=== PATIENT | female | born 1990 | race American Indian/Alaskan Native ===

== ENCOUNTER 2017-10-06 05:05 | Emergency (ER) | payer OTHER ==
[2017-10-06 05:40] VITALS: BMI 39.8
[2017-10-06] MEDS ORDERED: Lactated Ringer's 1,000 ML IV SCH (06:15)
[2017-10-06 06:45] VITALS: TEMP 97.9
[2017-10-06 06:58] LABS: BASO # 0.1 K/uL (0.0-0.2); BASO % 0.3 % (0.0-2.0); EOS # 0.1 K/uL (0.0-0.7); EOS % 0.5 % (0.0-4.0); HEMATOCRIT 33.6 % (34.0-47.0); LYMPH # 1.9 K/uL (1.0-4.3); LYMPH % 9.1 % (20.0-40.0); MEAN CELL VOLUME 76.6 fl (81.0-99.0); MEAN CORPUSCULAR HEMOGLOBIN 24.4 pg (27.0-31.0); MEAN CORPUSCULAR HGB CONC 31.9 g/dL (33.0-37.0); MEAN PLATELET VOLUME 8.9 fl (7.2-11.7); MONO # 0.9 K/uL (0.0-0.8); NEUT # 18.4 K/uL (1.8-7.0); NEUT % 86.1 % (50.0-75.0); PLATELET COUNT 262 K/uL (130-400); WHITE BLOOD COUNT 21.4 K/uL (4.8-10.8)
--- NOTE | 2017-10-06 07:08 | OBHP ---
Datetime: 10/06/2017 06:39 IP Chief Complaint Other: abdominal pain IP Admit Plan: Observation/Evaluation Vital Signs Provider: Reviewed; Within Normal Limits IP Chief Complaint: Other Datetime: 10/06/2017 06:14 IP Adm Impression: , intrauterine ; No Active Labor; Intact Membranes Admit Comment, IP Provider: CC: "abdominal pain" HPI: 27 YO @ 33.6wks IUP presents to [facility] for abdominal pain. Per pt, the pain started around 12AM this morning and it has progressively worsened. She describes it as a sharp pain that radiates to her back, and rates it as a 8/10 currently. Pt tried a Zantac earlier this AM, but it did not help resolve the pain. Endorses nausea and 2x episode of clear emesis. Good FM, no LOF and VB and no ctx. OBHx: x 2, 1 EAB, and 1x SAB GynH: denies STIs and normal pap PMH: history of H. pylori infection, s/p treatment Surg: x 2 SH: denies smoking ETOH and illict drug use FH: HTN, DM Meds: PNV and probiotics Allergies: NKDA PE VS: stable GEN: NAD Cardio: S1S2 no M/G/R Resp: vesicular breathing b/l Abdomen: tenderness to palpation of the epigastric area, gravid, BS+ BAck: CVA tenderness + b/l Neuro: AAO x 3 Ext: NT, no edema noted FM: 140, moderate variability-catagory I Assessment/plan: 27 YO @ 33.6wks IUP is being evaluated for epigastric pain, likely gastritis. -continue to monitor -IV fluids -zofran -pepsid -cbc, cmp, amylase, lipase -tylenol for pain -UA -continue to monitor and reevaluate. Pt seen and case discussed with Dr. Kevin Cat, PGY I OB Hospitalist note: Pt seen and examined with PGY1. Agree with note. chart rev'd (Dr Guzman - she works with him CP). Last WBC 20.9 on Sep 29 - no sign of infection then acc to pt. check CBC Diff / CMP / amylast / lipase and observe after meds. Dr Guzman contacted and will s ee her this AM...she was sent up from ER after EKG done for chest pain Pelvic Type - PN: Adequate Extremities - PN: Normal Abdomen - PN: Normal Back - PN: Abnormal Breast - PN: Not Done Lungs - PN: Normal Heart - PN: Normal Thyroid - PN: Not Done Neurologic - PN: Normal HEENT - PN: Normal General - PN: Normal FHR - Baseline A Provider: 140 IP Hx Assessment: The History has been Reviewed and is Current NICHD Variability Prov Fetus A: Moderate 6-25bpm NICHD Accel Fetus A IP Provider: 15X15 FHR Category Provider Fetus A: Category I Genitourinary Exam: Normal DTRs - PN: Not Done
--- NOTE | 2017-10-06 07:10 | OBHP ---
Datetime: 10/06/2017 06:39 Admit Comment, IP Provider: 27YO @ 33.6wks IUP is being evaluated for abdominal pain. Pt was seen by Dr. Brian by bedside. Pt was examined. Cervix: closed Deandra Cat, PGY I Agree with note megha
[2017-10-06 07:52] LABS: ALKALINE PHOSPHATASE 134 U/L (38-126); ALT/SGPT 24 U/L (9-52); AMYLASE 82 U/L (30-110); AST/SGOT 15 U/L (14-36); BILIRUBIN,TOTAL 0.2 mg/dl (0.2-1.3); BLOOD UREA NITROGEN 4 mg/dl (7-17); CALCIUM 8.6 mg/dL (8.4-10.2); CARBON DIOXIDE 20 mmol/L (22-30); CHLORIDE 109 mmol/L (98-107); GFR AFRICAN-AMERICAN > 60; GLUCOSE,RANDOM 107 mg/dL (65-105); LIPASE 58 U/L (23-300); POTASSIUM 3.5 MMOL/L (3.6-5.0); SODIUM 138 mmol/l (132-148); TOTAL PROTEIN 7.1 G/DL (6.3-8.2)
[2017-10-06 09:23] LABS: EOSINOPHIL 1 % (0-7); NEUTROPHIL 87 % (42-75); TOTAL CELLS COUNTED 100
--- NOTE | 2017-10-06 21:32 | CP.PCM.CON ---
History of Present Illness - History of Present Illness History of Present Illness: 27 y.o. female comes to the hospital with epigastric and RUQ abdominal pain since last night. Patient denies any fever or chills, states that felt nauseous and did vomit (no blood in the vomitus). Passing flatus and having bowel movements. Patient states that she never had similar pain before. Patient states that pain is radiating to her back. No urinary symptoms, no sick contacts at home. No other complains at present time. Review of Systems - Constitutional Constitutional: As Per HPI - EENT Eyes: Other (unremarkable) Ears: Other (unremarkable) Nose/Mouth/Throat: Other (unremarkable) - Cardiovascular Cardiovascular: Other (unremarkable) - Respiratory Respiratory: Other (unremarkable) - Gastrointestinal Gastrointestinal: As Per HPI - Genitourinary Genitourinary: As Per HPI - Reproductive: Female Additional comments: 33 weeks - Musculoskeletal Musculoskeletal: Other (unremarkable) - Integumentary Integumentary: Other (unremarkable) - Neurological Neurological: Other (unremarkable) - Psychiatric Psychiatric: Other (unremarkable) - Endocrine Endocrine: Other (unremarkable) - Hematologic/Lymphatic Hematologic: Other (unremarkable) Past Patient History - CARDIAC Hx Cardiac Disorders: No - PULMONARY Hx Respiratory Disorders: No - NEUROLOGICAL Hx Neurological Disorder: No - HEENT Hx HEENT Problems: No - RENAL Hx Chronic Kidney Disease: No - ENDOCRINE/METABOLIC Hx Endocrine Disorders: No - HEMATOLOGICAL/ONCOLOGICAL Hx Blood Disorders: No - INTEGUMENTARY Hx Dermatological Problems: No - MUSCULOSKELETAL/RHEUMATOLOGICAL Hx Musculoskeletal Disorders: No - GASTROINTESTINAL Hx Gall Bladder Disease: Yes - GENITOURINARY/GYNECOLOGICAL Hx Genitourinary Disorders: No - PSYCHIATRIC Hx Psychophysiologic Disorder: No - SURGICAL HISTORY Hx Surgeries: Yes Hx Section: Yes (x2) - ANESTHESIA Hx Anesthesia: Yes Meds Allergies/Adverse Reactions: Allergies Allergy/AdvReac Type Severity Reaction Status Date / Time No Known Allergies Allergy Verified 06/09/15 13:04 - Medications Medications: Current Medications Acetaminophen (Tylenol 325mg Tab) 650 mg PO ONCE PRN PRN Reason: Pain, severe (8-10) Last Admin: 10/06/17 06:25 Dose: 650 mg Lactated Ringer's (Lactated Ringer's) 1,000 mls @ 125 mls/hr IV .Q8H PARKER Last Admin: 10/06/17 06:23 Dose: 125 mls/hr Physical Exam - Constitutional Appears: Well, Non-toxic, No Acute Distress - Head Exam Head Exam: ATRAUMATIC, NORMAL INSPECTION, NORMOCEPHALIC - Eye Exam Eye Exam: EOMI, Normal appearance, PERRL Pupil Exam: NORMAL ACCOMODATION, PERRL - ENT Exam ENT Exam: Mucous Membranes Moist, Normal Exam - Neck Exam Neck exam: Positive for: Normal Inspection - Respiratory Exam Respiratory Exam: Clear to Auscultation Bilateral, NORMAL BREATHING PATTERN - Cardiovascular Exam Cardiovascular Exam: REGULAR RHYTHM, +S1, +S2 - GI/Abdominal Exam GI & Abdominal Exam: Normal Bowel Sounds, Soft Additional comments: RUQ tenderness, ND, gravid uterus, no rebound, no guarding, positive Heaton's sign, well healed scar from - Rectal Exam Rectal Exam: Deferred - Extremities Exam Extremities exam: Positive for: full ROM, normal inspection - Back Exam Back exam: NORMAL INSPECTION - Neurological Exam Neurological exam: Alert, CN II-XII Intact, Oriented x3 - Psychiatric Exam Psychiatric exam: Normal Affect, Normal Mood - Skin Skin Exam: Dry, Intact, Normal Color, Warm Results - Vital Signs Recent Vital Signs: Last Vital Signs Temp 97.9 F 10/06/17 06:25 Pulse Resp BP Pulse Ox - Labs Result Diagrams: 10/06/17 06:12 10/06/17 06:12 Labs: Laboratory Results - last 24 hr 10/06/17 10/06/17 06:12 06:12 WBC 21.4 H RBC 4.39 Hgb 10.7 L Hct 33.6 L MCV 76.6 L MCH 24.4 L MCHC 31.9 L RDW 14.0 Plt Count 262 MPV 8.9 Neut % (Auto) 86.1 H Lymph % (Auto) 9.1 L Radford % (Auto) 4.0 Eos % (Auto) 0.5 Baso % (Auto) 0.3 Neut # 18.4 H Lymph # 1.9 Radford # 0.9 H Eos # 0.1 Baso # 0.1 Neutrophils % (Manual) 87 H Lymphocytes % (Manual) 7 L Monocytes % (Manual) 5 Eosinophils % (Manual) 1 Platelet Estimate Normal Hypochromasia (manual) Slight Sodium 138 Potassium 3.5 L Chloride 109 H Carbon Dioxide 20 L Anion Gap 13 BUN 4 L Creatinine 0.4 L Est GFR ( Amer) > 60 Est GFR (Non-Af Amer) > 60 Random Glucose 107 H Calcium 8.6 Total Bilirubin 0.2 AST 15 ALT 24 Alkaline Phosphatase 134 H Total Protein 7.1 Albumin 3.5 Globulin 3.6 Albumin/Globulin Ratio 1.0 Amylase 82 Lipase 58 - Imaging and Cardiology US - abdomen Status: Image reviewed by me, Report reviewed by me Assessment & Plan - Assessment and Plan (Free Text) Assessment: 27 y.o. female 33 weeks with acute cholecystitis Plan: - Clear liquid diet - pain contrrol - Zofran prn - Continue Zosyn - IV fluids - Repeat labs in am - No general surgery intervention at present time - Patient will require cholecystectomy after delivery of the baby - Will follow
[2017-10-06] MEDS ORDERED: Piperacillin/Tazobact 3.375 GM in Sodium Chloride 0.9% 100 ML IVPB SCH (22:00)
--- NOTE | 2017-10-07 07:59 | CP.PCM.PN ---
Subjective - Date & Time of Evaluation Date of Evaluation: 10/07/17 Time of Evaluation: 06:40 - Subjective Subjective: General Surgery Patient seen and examined at bedside this morning. Patient states pain and nausea have resolved. Pt currently has an appetite. Denies Fevers, chills, chest pain, shortness of breath, nausea, vomiting, diarrhea. Objective - Vital Signs/Intake and Output Vital Signs (last 24 hours): Temp Pulse Resp BP Pulse Ox 97.9 F 10/06/17 06:25 - Medications Medications: Current Medications Acetaminophen (Tylenol 325mg Tab) 650 mg PO Q6 PRN PRN Reason: Pain, moderate (4-7) Piperacillin Sod/Tazobactam (Sod 3.375 gm/ Sodium Chloride) 100 mls @ 100 mls/ hr IVPB Q6 PARKER PRN Reason: Protocol Ondansetron HCl (Zofran Inj) 4 mg IVP Q4 PRN PRN Reason: Nausea/Vomiting - Labs Labs: 10/06/17 06:12 10/06/17 06:12 - Constitutional Appears: Non-toxic, No Acute Distress - Head Exam Head Exam: ATRAUMATIC - Eye Exam Eye Exam: EOMI. absent: Scleral icterus Pupil Exam: PERRL - Respiratory Exam Respiratory Exam: NORMAL BREATHING PATTERN. absent: Accessory Muscle Use, Chest Wall Tenderness, Respiratory Distress - Cardiovascular Exam Cardiovascular Exam: +S1, +S2. absent: Bradycardia, Tachycardia - GI/Abdominal Exam GI & Abdominal Exam: Soft. absent: Distended, Firm, Guarding, Rigid, Tenderness - Extremities Exam Extremities Exam: Normal Inspection. absent: Calf Tenderness - Neurological Exam Neurological Exam: Alert, Awake, Oriented x3 - Psychiatric Exam Psychiatric exam: Normal Affect - Skin Skin Exam: Dry, Intact, Normal Color, Warm Assessment and Plan - Assessment and Plan (Free Text) Assessment: 27F 34wks w/ RUQ pain, w/ cholecystitis Plan: - continue IV Abx - continue conservative management - will keep on CLD today. Plan to advance to regular tomorrow - counselled patient on foods to stay away from - recommend outpatient cholecystectomy - no acute surgical intervention at this time - discussed with surgical attending Clement Anglin PGY1
== END 2017-10-06 11:00 | disposition home or self-care (01) ==
LOC: H.EROB2 05:05
DX: O47.03 False labor before 37 completed weeks of gestation, third trimester (principal); Z3A.33 33 weeks gestation of pregnancy; O26.93 Pregnancy related conditions, unspecified, third trimester; R10.2 Pelvic and perineal pain
CPT/HCPCS: 80053; 82150; 83690; 85025; 96374; 96375; 99283; J2405; J7120

== ENCOUNTER 2017-10-06 16:46 | Emergency (ER) | payer OTHER ==
[2017-10-06 05:40] VITALS: BMI 39.8
--- NOTE | 2017-10-06 18:12 | OBHP ---
Datetime: 10/06/2017 17:40 IP Adm Impression: , intrauterine ; No Active Labor; Intact Membranes IP Chief Complaint Other: Chest tightness IP Admit Plan: Observation/Evaluation Admit Comment, IP Provider: "abdominal pain and chest tightness" HPI: 27 YO @ 33.6wks IUP presents to [facility] for abdominal pain/chest tightness. Per pt, the spenser n started around 12AM this morning and it has progressively getting worse. its constant, sharp pain, severity 9/10 and it radiates to back and up to the throat. Pain gets worse when pt moves and sits up . patient admits soury tast in mouth, uses 4 pillows, Had fried spicy food last night. Pt tried a [employer] tac earlier this AM, but it did not help to resolve the pain. Endorses nausea and 2x episode of clear emesis. Good FM, no LOF and VB and no ctx. patient denies any fever, chills. OBHx: x 2, 1 EAB, and 1x SAB GynH: denies STIs and normal pap PMH: history of H. pylori infection, s/p treatment Surg: x 2 SH: denies smoking ETOH and illict drug use FH: HTN, DM, cancers and kidney stones Meds: PNV and probiotics Allergies: NKDA PE VS: stable GEN: NAD Cardio: S1S2 no M/G/R Resp: vesicular breathing b/l Abdomen: tenderness to palpation of the epigastric area, gravid, BS+ Neuro: AAO x 3 Ext: NT, no edema noted FM: 140, moderate variability-catagory I Assessment/plan: 27 YO @ 33.6wks IUP is being evaluated for epigastric pain, likely due to GERD vs gastritis. - Monitor VS and FHT - continue to monitor and reevaluate - Transfer to ER Case discussed with Dr. Nunez Case discussed with dR. Josue --- Adelina Rose, PGY-1 The attending addendum: Patient seen and examined by me. Patient states she had fried chicken and finnish fries last night with [employer]. Since that time she has not been able to eat anything else. She was here earlier this tod ay in the morning and received Zofran and Pepcid without relief of her GERD. She complains of stabbin g midepigastric pain associated with reflux. She states today she has only been able to tolerate wate r and pain has continued to be 9-10/10. She denies contractions vaginal bleeding and spontaneous rup ture of membranes or decreased movement. Impression: 33.6 weeks GERD Plan: Dietary modifications recommended patient told to avoid fried foods spicy foods and caffeinated ca ffeinated beverages as well as carbonated beverages. Referred to ED for further evaluation and GI consult. Patient discussed with Dr. Nunez. Back - PN: Not Done Breast - PN: Not Done Lungs - PN: Normal Heart - PN: Normal Thyroid - PN: Normal Neurologic - PN: Normal HEENT - PN: Normal General - PN: Normal FHR - Baseline A Provider: 130 Comments, ACOG Physical Exam: GEN: NAD Cardio: S1S2 no M/G/R Resp: vesicular breathing b/l Abdomen: tenderness to palpation of the epigastric area, gravid, BS+ Neuro: AAO x 3 Ext: NT, no edema noted FM: 140, moderate variability-catagory I Vital Signs Provider: Reviewed IP Chief Complaint: Other NICHD Variability Prov Fetus A: Moderate 6-25bpm NICHD Accel Fetus A IP Provider: 15X15 FHR Category Provider Fetus A: Category I NICHD Decel Fetus A IP Provider: None
[2017-10-06] MEDS ORDERED: Alum-Mag Hydrox-Simethicone Susp (30 mL) ONE (19:40)
== END 2017-10-06 18:20 | disposition home or self-care (01) ==
LOC: H.EROB2 16:46 → H.EROB 17:07 → H.EROB2 18:20
DX: O26.93 Pregnancy related conditions, unspecified, third trimester (principal); R10.13 Epigastric pain; Z3A.33 33 weeks gestation of pregnancy

== ENCOUNTER 2017-10-06 18:34 | Inpatient (IN) | payer OTHER ==
[2017-10-06 18:35] VITALS: BMI 39.8
[2017-10-06] MEDS ORDERED: Alum-Mag Hydrox-Simethicone Susp (30 mL) PO ONE (19:34)
--- NOTE | 2017-10-06 20:21 | ED PDOC ---
HPI: Abdomen Time Seen by Provider: 10/06/17 19:15 Chief Complaint (Nursing): Abdominal Pain Chief Complaint (Provider): Abdominal Pain History Per: Patient History/Exam Limitations: no limitations Onset/Duration Of Symptoms: Days (x1) Current Symptoms Are (Timing): Still Present Additional Complaint(s): Eris Batista is a 27 year old female, currently 34 weeks with previous medical history of GERD and gastritis, who presents to the emergency department with a complaint of upper abdominal pain associated with 1 episode of vomiting and "burning" chest pain status post eating fried and spicy food last night. Denied fever, chills, diarrhea, cough, shortness of breath, leg pain or swelling. Patient was seen in OB ED earlier today for similar complaints and had monitoring. She reported taking a Xantac with no relief of symptoms. PMD: Miguelangel Nunez MD Past Medical History Reviewed: Historical Data, Nursing Documentation, Vital Signs Vital Signs: Last Vital Signs Temp 98.9 F 10/06/17 21:37 Pulse 96 H 10/06/17 21:37 Resp 18 10/06/17 21:37 BP 109/62 10/06/17 21:37 Pulse Ox 97 10/06/17 21:46 - Medical History PMH: Gastritis, GERD, Chronic Pain (back) Other PMH: H. pylori - Surgical History Surgical History: Denies: No Surg Hx - Family History Family History: States: No Known Family Hx - Home Medications Home Medications: Ambulatory Orders Medication Instructions Recorded Vit Calc,Iron,Folic 1 tab PO DAILY 10/06/17 [ Vitamins] - Allergies Allergies/Adverse Reactions: Allergies Allergy/AdvReac Type Severity Reaction Status Date / Time No Known Allergies Allergy Verified 10/06/17 21:39 Review of Systems ROS Statement: Except As Marked, All Systems Reviewed And Found Negative Constitutional: Negative for: Fever, Chills Cardiovascular: Positive for: Chest Pain ("burning") Respiratory: Negative for: Cough, Shortness of Breath Gastrointestinal: Positive for: Vomiting (x1), Abdominal Pain (epigastric). Negative for: Diarrhea Musculoskeletal: Negative for: Leg Pain (or swelling) Physical Exam - Reviewed Nursing Documentation Reviewed: Yes Vital Signs Reviewed: Yes - Physical Exam Appears: Positive for: Uncomfortable Head Exam: Positive for: ATRAUMATIC, NORMAL INSPECTION, NORMOCEPHALIC Skin: Positive for: Normal Color, Warm, Dry Eye Exam: Positive for: Normal appearance, EOMI ENT: Positive for: Normal ENT Inspection Neck: Positive for: Normal, Painless ROM, Supple. Negative for: Decreased ROM Cardiovascular/Chest: Positive for: Regular Rate, Rhythm, Chest Non Tender. Negative for: Tachycardia Respiratory: Positive for: Normal Breath Sounds. Negative for: Decreased Breath Sounds, Wheezing, Respiratory Distress Gastrointestinal/Abdominal: Positive for: Tenderness (epigastric), Other (gravid ). Negative for: Normal Exam Back: Positive for: Normal Inspection. Negative for: L CVA Tenderness, R CVA Tenderness Extremity: Positive for: Normal ROM. Negative for: Tenderness, Pedal Edema, Calf Tenderness, Deformity Neurologic/Psych: Positive for: Alert, Oriented - Laboratory Results Result Diagrams: 10/06/17 20:00 10/06/17 21:20 - ECG O2 Sat by Pulse Oximetry: 97 (RA) Pulse Ox Interpretation: Normal Medical Decision Making Medical Decision Making: Initial Impression: Epigastric pain Differential Diagnosis: Gastritis; GERD; pancreatitis; colitis Initial Plan: * CMP * Lipase * CBC * Lidocaine 2% viscous 15ml PO * Maalox 30ml PO * Zofran inj 4mg IV * US gallbladder Time: 2032 --US gallbladder FINDINGS: Liver: Unremarkable. No mass. No intrahepatic bile duct dilation. Gallbladder: Mild to moderate wall thickening and pericholecystic fluid. Large gallstone in the gallbladder neck and positive sonographic Heaton's sign Common bile duct: Unremarkable as visualized. No stones. No dilation. Pancreas: Unremarkable as visualized. Right kidney: Unremarkable. No stones. No solid mass. No hydronephrosis. IMPRESSION: Findings suspect for cholecystitis. Time: 2039 --Spoke with Dr. Rice who recommended IV ABX and admission to hospital. --Awaiting call from Dr. Nunez. Time: 2129 --Discussed case with Dr. Nunez who will admit patient under his care. Scribe Attestation: Documented by Jeanine Pineda, acting as a scribe for Shiv Leone MD.. Provider Scribe Attestation: All medical record entries made by the Scribe were at my direction and personally dictated by me. I have reviewed the chart and agree that the record accurately reflects my personal performance of the history, physical exam, medical decision making, and the department course for this patient. I have also personally directed, reviewed, and agree with the discharge instructions and disposition. Disposition - Clinical Impression Clinical Impression: Acute calculous cholecystitis - Patient ED Disposition Is Patient to be Admitted: Yes Discussed With : Miguelangel Nunez Doctor Will See Patient In The: Hospital Counseled Patient/Family Regarding: Studies Performed, Diagnosis - Disposition Disposition: Routine/Home Disposition Time: 21:30 (]) Condition: FAIR Forms: Vow To Be Chic (Estonian) - Pt Status Changed To: Hospital Disposition Of: Inpatient - Admit Certification Admit to Inpatient:: After my assessment, the patient will require hospitalization for at least two midnights. This is because of the severity of symptoms shown, intensity of services needed, and/or the medical risk in this patient being treated as an outpatient. - POA Present On Arrival: None
[2017-10-06 20:27] LABS: BASO # 0.1 K/uL (0.0-0.2); BASO % 0.3 % (0.0-2.0); EOS % 0.1 % (0.0-4.0); HEMATOCRIT 35.1 % (34.0-47.0); LYMPH # 1.7 K/uL (1.0-4.3); LYMPH % 6.2 % (20.0-40.0); MEAN CELL VOLUME 77.1 fl (81.0-99.0); MEAN CORPUSCULAR HEMOGLOBIN 24.5 pg (27.0-31.0); MEAN CORPUSCULAR HGB CONC 31.7 g/dL (33.0-37.0); MONO # 1.6 K/uL (0.0-0.8); MONO % 5.8 % (0.0-10.0); NEUT % 87.6 % (50.0-75.0); RED CELL DISTRIBUTION WIDTH 14.4 % (11.5-14.5); WHITE BLOOD COUNT 27.4 K/uL (4.8-10.8)
[2017-10-06] MEDS ORDERED: Piperacillin/Tazobact 3.375 GM in Sodium Chloride 0.9% 100 ML IVPB STA (20:27)
[2017-10-06] MEDS ORDERED: Sodium Chloride 0.9% 1,000 ML IV STA (20:28)
[2017-10-06 21:29] LABS: VENOUS BLOOD GAS BASE EXCESS -2.5 mmol/L (0.0-2.0); VENOUS BLOOD GAS PCO2 35 mmHg (40-60)
[2017-10-06 21:46] VITALS: O2SAT 97
[2017-10-06 21:47] LABS: ALKALINE PHOSPHATASE 145 U/L (38-126); ALT/SGPT 23 U/L (9-52); AST/SGOT 18 U/L (14-36); BILIRUBIN,TOTAL 0.5 mg/dl (0.2-1.3); BLOOD UREA NITROGEN 3 mg/dl (7-17); CALCIUM 8.7 mg/dL (8.4-10.2); CARBON DIOXIDE 19 mmol/L (22-30); CHLORIDE 105 mmol/L (98-107); GFR AFRICAN-AMERICAN > 60; GLUCOSE,RANDOM 88 mg/dL (65-105); LIPASE 77 U/L (23-300); POTASSIUM 3.9 MMOL/L (3.6-5.0); SODIUM 137 mmol/l (132-148); TOTAL PROTEIN 7.2 G/DL (6.3-8.2)
[2017-10-07] MEDS: Piperacillin/Tazobact 3.375 GM in Sodium Chloride 0.9% 100 ML IVPB SCH ×4 (03:52→22:00)
--- NOTE | 2017-10-07 09:14 | US ---
HISTORY: epigastric pain COMPARISON: None. TECHNIQUE: Grayscale imaging was performed. FINDINGS: LIVER: Measures 18.9 cm in length. Normal echogenicity of the liver parenchyma. No mass. No intrahepatic bile duct dilatation. GALLBLADDER: The gallbladder is distended. There are gallstones, layering sludge, diffuse gallbladder wall thickening measuring 6 mm and mild pericholecystic fluid. The sonographic Heaton sign is positive. COMMON BILE DUCT: Measures 3.8 mm. No stones. No dilatation. PANCREAS: Unremarkable as visualized. No mass. No ductal dilatation. RIGHT KIDNEY: Measures 13.2 cm in length. Normal echogenicity. No calculus, mass, or hydronephrosis. AORTA: No aneurysmal dilatation. IVC: Unremarkable. OTHER FINDINGS: None . IMPRESSION: Acute calculus cholecystitis. Mild hepatomegaly. A preliminary report was provided by [facility].
[2017-10-07 10:04] LABS: BASO % 0.2 % (0.0-2.0); EOS # 0.1 K/uL (0.0-0.7); EOS % 0.3 % (0.0-4.0); HEMATOCRIT 32.4 % (34.0-47.0); LYMPH # 1.4 K/uL (1.0-4.3); LYMPH % 5.4 % (20.0-40.0); MEAN CELL VOLUME 76.1 fl (81.0-99.0); MEAN CORPUSCULAR HEMOGLOBIN 24.9 pg (27.0-31.0); MEAN CORPUSCULAR HGB CONC 32.7 g/dL (33.0-37.0); MEAN PLATELET VOLUME 8.9 fl (7.2-11.7); MONO % 7.8 % (0.0-10.0); NEUT # 22.5 K/uL (1.8-7.0); NEUT % 86.3 % (50.0-75.0); PLATELET COUNT 284 K/uL (130-400); RED CELL DISTRIBUTION WIDTH 14.2 % (11.5-14.5); WHITE BLOOD COUNT 26.1 K/uL (4.8-10.8)
[2017-10-07 10:19] LABS: ALKALINE PHOSPHATASE 139 U/L (38-126); ALT/SGPT 28 U/L (9-52); AST/SGOT 16 U/L (14-36); BILIRUBIN,TOTAL 0.7 mg/dl (0.2-1.3); CALCIUM 8.8 mg/dL (8.4-10.2); CARBON DIOXIDE 19 mmol/L (22-30); CHLORIDE 108 mmol/L (98-107); GFR AFRICAN-AMERICAN > 60; GLUCOSE,RANDOM 106 mg/dL (65-105); POTASSIUM 3.7 MMOL/L (3.6-5.0); SODIUM 138 mmol/l (132-148); TOTAL PROTEIN 6.9 G/DL (6.3-8.2)
[2017-10-07 10:22] LABS: BLOOD UREA NITROGEN 2 mg/dl (7-17)
[2017-10-07 11:04] LABS: EOSINOPHIL 1 % (0-7); NEUTROPHIL 89 % (42-75); TOTAL CELLS COUNTED 100
[2017-10-07 11:05] LABS: LARGE PLATELETS PRESENT
[2017-10-08] MEDS: Piperacillin/Tazobact 3.375 GM in Sodium Chloride 0.9% 100 ML IVPB SCH ×2 (03:57→09:32)
--- NOTE | 2017-10-08 09:16 | CP.PCM.PN ---
Subjective - Date & Time of Evaluation Date of Evaluation: 10/08/17 Time of Evaluation: 06:30 - Subjective Subjective: General Surgery Patient seen and examined at bedside this morning. No acute events overnight. patient tolerating regular diet. denies nausea, vomiting, abdominal pain. Denies fevers, chills, chest pain. Objective - Vital Signs/Intake and Output Vital Signs (last 24 hours): Temp Pulse Resp BP Pulse Ox 98.9 F 96 H 18 109/62 97 10/06/17 23:30 10/06/17 23:30 10/06/17 23:30 10/06/17 23:30 10/06/17 21:49 - Medications Medications: Current Medications Acetaminophen (Tylenol 325mg Tab) 650 mg PO Q6 PRN PRN Reason: Pain, moderate (4-7) Last Admin: 10/07/17 21:47 Dose: 650 mg Famotidine (Pepcid) 20 mg IVP Q12 PARKER Last Admin: 10/07/17 21:45 Dose: 20 mg Piperacillin Sod/Tazobactam (Sod 3.375 gm/ Sodium Chloride) 100 mls @ 100 mls/ hr IVPB Q6 PARKER PRN Reason: Protocol Last Admin: 10/08/17 03:57 Dose: 100 mls/hr Ondansetron HCl (Zofran Inj) 4 mg IVP Q4 PRN PRN Reason: Nausea/Vomiting - Labs Labs: 10/07/17 09:40 10/07/17 09:40 - Constitutional Appears: Non-toxic, No Acute Distress - Head Exam Head Exam: ATRAUMATIC - Eye Exam Eye Exam: EOMI. absent: Scleral icterus - ENT Exam ENT Exam: Mucous Membranes Moist - Respiratory Exam Respiratory Exam: NORMAL BREATHING PATTERN. absent: Accessory Muscle Use, Respiratory Distress - Cardiovascular Exam Cardiovascular Exam: +S1, +S2. absent: Bradycardia, Tachycardia - GI/Abdominal Exam GI & Abdominal Exam: Soft. absent: Distended, Firm, Guarding, Rigid, Tenderness Additional comments: Uterus palpated above umbilicus - Extremities Exam Extremities Exam: Normal Inspection. absent: Calf Tenderness - Neurological Exam Neurological Exam: Alert, Awake, Oriented x3 - Psychiatric Exam Psychiatric exam: Normal Affect - Skin Skin Exam: Intact, Normal Color, Warm Assessment and Plan - Assessment and Plan (Free Text) Assessment: 27F 34weeks w/ acute cholecystitis Plan: patient tolerating current diet w/ no abdominal pain cleared for discharge from surgical standpoint home on oral antibiotics; recommend Augmentin for 7-10 days follow up as an outpatient for elective cholecystectomy counselled patient on food to avoid discussed with surgical attending Clement Anglin PGY1
[2017-10-08 09:17] LABS: HEMATOCRIT 34.2 % (34.0-47.0); MEAN CELL VOLUME 76.2 fl (81.0-99.0); MEAN CORPUSCULAR HEMOGLOBIN 25.2 pg (27.0-31.0); MEAN CORPUSCULAR HGB CONC 33.1 g/dL (33.0-37.0); RED CELL DISTRIBUTION WIDTH 14.6 % (11.5-14.5); WHITE BLOOD COUNT 22.9 K/uL (4.8-10.8)
[2017-10-08 09:39] LABS: ALB/GLOB RATIO 0.9 (1.0-2.1); ALKALINE PHOSPHATASE 155 U/L (38-126); ALT/SGPT 30 U/L (9-52); AST/SGOT 17 U/L (14-36); BILIRUBIN,TOTAL 0.6 mg/dl (0.2-1.3); BLOOD UREA NITROGEN 4 mg/dl (7-17); CALCIUM 8.8 mg/dL (8.4-10.2); CARBON DIOXIDE 19 mmol/L (22-30); CHLORIDE 108 mmol/L (98-107); GFR AFRICAN-AMERICAN > 60; GLUCOSE,RANDOM 131 mg/dL (65-105); POTASSIUM 3.5 MMOL/L (3.6-5.0); SODIUM 137 mmol/l (132-148); TOTAL PROTEIN 7.3 G/DL (6.3-8.2)
--- NOTE | 2017-10-08 12:54 | OBADHP ---
Datetime: 10/08/2017 12:48 IP Chief Complaint Other: epigastric pain Admit Comment, IP Provider: iup at 34 weeks with epigastric pain diagnosed with acute cholecystitis for treatment and evaluation Pelvic Type - PN: Adequate Extremities - PN: Normal Abdomen - PN: Normal Back - PN: Normal Breast - PN: Normal Lungs - PN: Normal Heart - PN: Normal Thyroid - PN: Normal Neurologic - PN: Normal HEENT - PN: Normal General - PN: Normal Presentation-Admit: Vertex FHR - Baseline A Provider: 150 Membranes, Provider: Intact Contraction Comments Provider: irregular Gestation - Est Wks by US: 34.0 Vital Signs Provider: Reviewed; Within Normal Limits IP Chief Complaint: Uterine contractions NICHD Variability Prov Fetus A: Moderate 6-25bpm NICHD Accel Fetus A IP Provider: 10X10 FHR Category Provider Fetus A: Category I NICHD Decel Fetus A IP Provider: None Dilatation, Provider: 0 Genitourinary Exam: Normal DTRs - PN: Normal IP Adm Impression: , intrauterine IP Admit Plan: Admit to unit Datetime: 10/06/2017 17:40 Comments, ACOG Physical Exam: GEN: NAD Cardio: S1S2 no M/G/R Resp: vesicular breathing b/l Abdomen: tenderness to palpation of the epigastric area, gravid, BS+ Neuro: AAO x 3 Ext: NT, no edema noted FM: 140, moderate variability-catagory I NST: reactive (Annotations: Data stored by CPN on behalf of user) Datetime: 10/06/2017 06:14 IP Hx Assessment: The History has been Reviewed and is Current
--- NOTE | 2017-10-08 14:19 | OBDCSUM ---
Datetime: 10/08/2017 12:53 Discharged to, Provider: Home Follow up at, Provider: Disch Instr Activity: Bedrest; May be up to bathroom; May be up for meals; May Shower Disch Instr Diet: Restricted, specify Discharge Instructions, Provider: Specific instructions as noted Follow up in weeks, Provider: 1week in office Disch Referrals: None Disch Activity Restrictions: No exercising; No lifting; No driving; Minimize walking; Minimize stair -climbing; No sexual activity; Nothing in vagina - Chaplin, tampons, douche Discharge Comment, Provider: gildardo home today rto 1week calloffice if any problems Contraception after Delivery: Not Planning to Use
[2017-10-08 19:18] VITALS: BP 120/57; PULSE 100; RESP 20; TEMP 98.2
== END 2017-10-08 13:50 | disposition home or self-care (01) | DRG 781 ==
LOC: H.ER 18:34 → H.L&D 21:29 → H.OB/GYN 23:49
PROVIDERS: ADMIT Specialist; ATTEND Specialist
DX: O26.613 Liver and biliary tract disorders in pregnancy, third trimester (principal); K81.0 Acute cholecystitis; Z3A.34 34 weeks gestation of pregnancy

== ENCOUNTER 2017-11-01 11:09 | Emergency (ER) | payer OTHER ==
[2017-11-01 11:40] VITALS: BMI 43.9
[2017-11-01] MEDS ORDERED: Lactated Ringer's 1,000 ML IV SCH (11:45)
[2017-11-01 12:22] LABS: BASO # 0.1 K/uL (0.0-0.2); BASO % 0.3 % (0.0-2.0); EOS # 0.1 K/uL (0.0-0.7); EOS % 0.6 % (0.0-4.0); HEMATOCRIT 35.8 % (34.0-47.0); LYMPH # 1.8 K/uL (1.0-4.3); LYMPH % 10.9 % (20.0-40.0); MEAN CELL VOLUME 75.7 fl (81.0-99.0); MEAN CORPUSCULAR HEMOGLOBIN 24.7 pg (27.0-31.0); MEAN CORPUSCULAR HGB CONC 32.6 g/dL (33.0-37.0); MEAN PLATELET VOLUME 9.5 fl (7.2-11.7); MONO # 0.7 K/uL (0.0-0.8); MONO % 4.3 % (0.0-10.0); NEUT # 13.8 K/uL (1.8-7.0); NEUT % 83.9 % (50.0-75.0); NRBC % 0.1 % (0.0-0.0); RED CELL DISTRIBUTION WIDTH 14.7 % (11.5-14.5); WHITE BLOOD COUNT 16.5 K/uL (4.8-10.8)
[2017-11-01 12:36] LABS: ALKALINE PHOSPHATASE 176 U/L (38-126); ALT/SGPT 27 U/L (9-52); AMYLASE 78 U/L (30-110); AST/SGOT 19 U/L (14-36); BILIRUBIN,TOTAL 0.3 mg/dl (0.2-1.3); BLOOD UREA NITROGEN 6 mg/dl (7-17); CALCIUM 8.4 mg/dL (8.4-10.2); CARBON DIOXIDE 19 mmol/L (22-30); CHLORIDE 108 mmol/L (98-107); GFR AFRICAN-AMERICAN > 60; GLUCOSE,RANDOM 73 mg/dL (65-105); LIPASE 69 U/L (23-300); POTASSIUM 3.7 MMOL/L (3.6-5.0); SODIUM 138 mmol/l (132-148); TOTAL PROTEIN 7.4 G/DL (6.3-8.2)
[2017-11-01 20:52] VITALS: BP 104/60; PULSE 87; RESP 20; TEMP 98.2; O2SAT 100
--- NOTE | 2017-11-02 06:30 | OBHP ---
Datetime: 11/01/2017 11:38 IP Adm Impression: Term, intrauterine ; No Active Labor; Intact Membranes IP Admit Plan: Observation/Evaluation Admit Comment, IP Provider: 27 YO @ [address]w [address] Nunez's office for CTX pain starting y . Some Vomiting/nausea. No SROM; no VB; +FM. She was seen by my in the past BRENDA diagnosed with gall stones. PNC: Dr Nunez/chart rev'd OBHx: x 2, 1 EAB, and 1x SAB GynH: denies STIs and normal pap PMH: history of H. pylori infection, s/p treatment Surg: x 2 SH: denies smoking ETOH and illict drug use FH: HTN, DM Meds: PNV and probiotics Allergies: NKDA Assessment : IUP at 37w; N/V Hx cholelithiasis Previous C/S x 2 CTX pain PLAN: IVF labs; msg left for Dr Nunez (in office) Pelvic Type - PN: Adequate Extremities - PN: Normal Abdomen - PN: Normal Back - PN: Normal Breast - PN: Not Done Lungs - PN: Normal Heart - PN: Normal Thyroid - PN: Normal Neurologic - PN: Normal HEENT - PN: Normal General - PN: Normal FHR - Baseline A Provider: 140 Membranes, Provider: Intact Comments, ACOG Physical Exam: ROS: General: no fatigue; no weakness HEENT: no PEDERSEN; no visual dist RESP: no cough; no SOB CV: no CP; no palpitations GI: no N/V/D : no F/U/D MS: no joint pain Pool Provider: Negative IP Hx Assessment: The History has been Reviewed and is Current EGA AdmitDate IP: 37.5 Vital Signs Provider: Reviewed; Within Normal Limits IP Chief Complaint: Uterine contractions FHR Category Provider Fetus A: Category I NICHD Decel Fetus A IP Provider: None Dilatation, Provider: 0 Effacement, Provider: 0 Genitourinary Exam: Normal DTRs - PN: Normal Datetime: 10/08/2017 12:48 IP Chief Complaint Other: epigastric pain Presentation-Admit: Vertex Contraction Comments Provider: irregular Gestation - Est Wks by US: 34.0 IP Indication for Induction: Not Applicable NICHD Variability Prov Fetus A: Moderate 6-25bpm NICHD Accel Fetus A IP Provider: 10X10
--- NOTE | 2017-11-02 06:33 | OBDCSUM ---
Datetime: 11/01/2017 16:10 Discharge Diagnosis, Provider: False Labor - Undelivered Discharge Comment, Provider: OB hospitalist on-call: She was dischasrged by Dr Pedro after revie w of labs/seeing pt a
== END 2017-11-01 16:15 | disposition home or self-care (01) ==
LOC: H.EROB2 11:09
DX: O26.93 Pregnancy related conditions, unspecified, third trimester (principal); R10.2 Pelvic and perineal pain; Z3A.37 37 weeks gestation of pregnancy; O47.1 False labor at or after 37 completed weeks of gestation
CPT/HCPCS: 80053; 82150; 83690; 85025; 86850; 86900; 99283; J7120

== ENCOUNTER 2017-11-07 00:37 | Inpatient (IN) | payer OTHER ==
[2017-11-07] MEDS ORDERED: cefOXitin 2 GM in Sodium Chloride 0.9% 100 ML IVPB ONE (01:06)
[2017-11-07] MEDS: Lactated Ringer's 1,000 ML IV SCH ×2 (01:15→01:32)
[2017-11-07 01:16] LABS: BASO # 0.1 K/uL (0.0-0.2); BASO % 0.5 % (0.0-2.0); EOS # 0.1 K/uL (0.0-0.7); EOS % 0.5 % (0.0-4.0); HEMATOCRIT 35.8 % (34.0-47.0); LYMPH # 3.5 K/uL (1.0-4.3); MEAN CORPUSCULAR HEMOGLOBIN 24.3 pg (27.0-31.0); MEAN CORPUSCULAR HGB CONC 31.9 g/dL (33.0-37.0); MEAN PLATELET VOLUME 9.4 fl (7.2-11.7); MONO # 1.2 K/uL (0.0-0.8); MONO % 5.7 % (0.0-10.0); NEUT # 15.5 K/uL (1.8-7.0); NEUT % 76.3 % (50.0-75.0); RED CELL DISTRIBUTION WIDTH 14.8 % (11.5-14.5); WHITE BLOOD COUNT 20.3 K/uL (4.8-10.8)
--- NOTE | 2017-11-07 01:39 | OBHP ---
Datetime: 11/07/2017 01:10 IP Adm Impression: Term, intrauterine IP Adm Impression Other: Contraction Pain IP Admit Plan: Admit to unit; Initiate Section protocol Admit Comment, IP Provider: 27yo with IUP at 38.4 and h/o previous C/S X2 reports here today c/ o contractin pains starting about 1 hour ago. She denies any VB or LOF. Feels good movements. TOCO- Q 2-3, FHR- 140s, regular Cx- 0/0/-2, Vtx Assessment: IUP at 38.4wks Previous Cesareans X2 with Active contractions Plan: As per Dr Fitch: Admit to LND Prepare for a repeat Section. Pelvic Type - PN: Adequate Extremities - PN: Normal Abdomen - PN: Normal Back - PN: Normal Breast - PN: Normal Lungs - PN: Normal Heart - PN: Normal Thyroid - PN: Normal Neurologic - PN: Normal HEENT - PN: Normal General - PN: Normal Presentation-Admit: Vertex FHR - Baseline A Provider: 140 Membranes, Provider: Intact Contraction Comments Provider: Q 2-3 Comments, ACOG Physical Exam: Abd: Soft,NT, BS - present Uterus: Firm Gestation - Est Wks by US: 38.4 EGA AdmitDate IP: 38.4 Vital Signs Provider: Reviewed IP Chief Complaint: Uterine contractions; Maternal discomfort NICHD Variability Prov Fetus A: Moderate 6-25bpm NICHD Accel Fetus A IP Provider: 15X15 FHR Category Provider Fetus A: Category I NICHD Decel Fetus A IP Provider: None Dilatation, Provider: 0 Effacement, Provider: 0 Station, Provider: -2 Genitourinary Exam: Normal DTRs - PN: Normal
[2017-11-07 01:41] VITALS: O2SAT 100
[2017-11-07] MEDS ORDERED: Bicitra 30 ML UD PO ONE (01:42)
[2017-11-07] MEDS ORDERED: Fentanyl/Bupivacaine HCl 250 ML EPI ONE (01:51)
[2017-11-07] MEDS ORDERED: Bupivacaine HCl 0.25% PF (10 ml) Inj ONE (01:52)
[2017-11-07] MEDS ORDERED: Oxytocin 30 UNITS in Sodium Chloride 0.9% 500 ML IV ONE (02:00)
[2017-11-07] MEDS ORDERED: Lactated Ringer's 1,000 ML IV SCH ×2 (02:45→07:34)
[2017-11-07] MEDS ORDERED: EPINEPHrine 1 mg/ml (1:1000) Inj ONE (04:02)
[2017-11-07] MEDS ORDERED: Lidocaine 2% PF (10 ml) Amp ONE (04:03)
[2017-11-07] MEDS ORDERED: Morphine 1 mg/ml preservative-free Inj(Duramorph) ONE (04:19)
--- NOTE | 2017-11-07 04:27 | OBADHP ---
Datetime: 11/07/2017 01:10 IP Adm Impression Other: Contraction Pain Admit Comment, IP Provider: 27yo with IUP at 38.4 and h/o previous C/S X2 reports here today c/ o contractin pains starting about 1 hour ago. She denies any VB or LOF. Feels good movements. TOCO- Q 2-3, FHR- 140s, regular Cx- 0/0/-2, Vtx Assessment: IUP at 38.4wks Previous Cesareans X2 with Active contractions Plan: As per Dr Fitch: Admit to LND Prepare for a repeat Section. Pelvic Type - PN: Adequate Extremities - PN: Normal Abdomen - PN: Normal Back - PN: Normal Breast - PN: Normal Lungs - PN: Normal Heart - PN: Normal Thyroid - PN: Normal Neurologic - PN: Normal HEENT - PN: Normal General - PN: Normal Presentation-Admit: Vertex FHR - Baseline A Provider: 140 Membranes, Provider: Intact Contraction Comments Provider: Q 2-3 Comments, ACOG Physical Exam: Abd: Soft,NT, BS - present Uterus: Firm Gestation - Est Wks by US: 38.4 Vital Signs Provider: Reviewed IP Chief Complaint: Uterine contractions; Maternal discomfort NICHD Variability Prov Fetus A: Moderate 6-25bpm NICHD Accel Fetus A IP Provider: 15X15 FHR Category Provider Fetus A: Category I NICHD Decel Fetus A IP Provider: None Dilatation, Provider: 0 Effacement, Provider: 0 Station, Provider: -2 Genitourinary Exam: Normal DTRs - PN: Normal EGA AdmitDate IP: 38.4 IP Adm Impression: Term, intrauterine ; Ruptured Membranes IP Admit Plan: Admit to unit; Initiate Section protocol Datetime: 11/01/2017 11:38 Pool Provider: Negative IP Hx Assessment: The History has been Reviewed and is Current
[2017-11-07] MEDS ORDERED: ePHEDrine 50 mg/ml Inj ONE (04:46)
[2017-11-07] MEDS ORDERED: Oxycodone/Acetaminophen 5/325 mg Tab PO PRN ×3 (06:03→07:34)
[2017-11-07] MEDS ORDERED: Bisacodyl 5mg EC Tab PO PRN ×2 (06:03→07:34)
--- NOTE | 2017-11-07 06:03 | OBDS ---
DELIVERY PERSONNEL Delivery Doctor: Jonathan Nunez MD Plan Coordinator: Izzy Bee RN/ Debra Dutton RN Anesthesiologist: Ana Laura Chery MD MATERNAL INFORMATION Delivery Anesthesia: Epidural; Spinal Medications in Delivery: mefoxin, pit 30/500 and pit Estimated Blood Loss (ml): 850ml Placenta Cultured: No Maternal Complications: None Provider Comments: delivery of live baby girl 9/9 clear fluid tubes and ovaries wnl placenta i ntact ebl 850ml LABOR SUMMARY EDC: 11/17/2017 00:00 No. Babies in Womb: 1 Attempted: No Labor Anesthesia: Epidural LABOR INFORMATION Reason for Induction: Not Applicable Oxytocin: N/A Group B Beta Strep: Negative Antibiotics # of Doses: none Antibiotics Time of Last Dose: none Steroids Given: None Reason Steroids Not Administered: Not Applicable MEMBRANES Membranes Rupture Method: Spontaneous Rupture of Membranes: 11/07/2017 00:00 Length of Rupture (hrs): 5.02 Amniotic Fluid Color: Light Meconium Amniotic Fluid Amount: Large Amniotic Fluid Odor: None STAGES OF LABOR Stage 3 hrs: 0 Stage 3 min: 1 VAGINAL DELIVERY Episiotomy: None Laceration Extension: N/A Laceration Type: None CSECTION DELIVERY CSection Incision: Lower Uterine Transverse BABY A INFORMATION Delivery Date/Time: 11/07/2017 05:01 Method of Delivery: Vaginal Born in Route : No : N/A Forceps: N/A Vacuum Extraction: N/A Shoulder Dystocia : No SHOULDER DYSTOCIA BABY A Infant Delivery Date/Time: 11/07/2017 05:01 PRESENTATION/POSITION BABY A Presentation: Cephalic Cephalic Presentation: Vertex Vertex Position: Left Occipital Anterior Breech Presentation: N/A PLACENTA INFORMATION BABY A Placenta Delivery Time : 11/07/2017 05:02 Placenta Method of Delivery: Manual Removal Placenta Status: Delivered SCORES BABY A Heart Rate 1 min: >100 bpm Resp Effort 1 min: Absent Reflex Irritability 1 min: Cough or Sneeze or Pulls Away Muscle Tone 1 min: Active Motion Color 1 min: Body [place], Extremities Blue Resuscitation Effort 1 min: Tactile Stimulation; PPV/NCPAP SCORE 1 MIN: 7 Heart Rate 5 min: >100 bpm Resp Effort 5 min: Good Cry Reflex Irritability 5 min: Cough or Sneeze or Pulls Away Muscle Tone 5 min: Active Motion Color 5 min: Body [place], Extremities Blue Resuscitation Effort 5 min: N/A SCORE 5 MIN: 9 INFORMATION BABY A Gestational Age at Delivery: 38.4 Gestational Status: Term Infant Outcome : Liveborn Infant Condition : Stable Sex: Female IDENTIFICATION/MEDS BABY A ID Band Number: [id number] ID Band Location: Left Leg; Left Arm WEIGHT/LENGTH BABY A Infant Birthweight (gms): 3270 Infant Weight (lb): 7 Weight (oz): 3 Length Inches: 20.75 Infant Length cms: 52.7 CORD INFORMATION BABY A No. Cord Vessels: 3 Nuchal Cord : Around Neck x1, Loose Nuchal Cord Other: N/A True Knot: N/A Infant Cord pH Baby Arterial: N/A Infant Cord pH Baby Venous: N/A Cord Blood Taken: Yes Banking/Donate Info: N/A Infant Suction: Mouth; Nose ASSESSMENT BABY A Complications: Meconium Physical Findings at Delivery: Within Normal Limits Infant Respirations: Appears Normal Junior Software Developer/ALS Called : No Infant Care By: Dr Rowell Transferred To: Remains with Mother
[2017-11-07] MEDS ORDERED: DiphenhydrAMINE 50 mg/ml Inj IVP PRN (07:18)
[2017-11-07] MEDS: DiphenhydrAMINE 50 mg/ml Inj IVP PRN ×2 (07:41→12:52)
--- NOTE | 2017-11-07 15:31 | OP ---
PROCEDURE DATE: 11/07/2017 PREOPERATIVE DIAGNOSES: Term with rupture of membrane and in labor. POSTOPERATIVE DIAGNOSES: Term with rupture of membrane and in labor. PROCEDURE: Repeat low-transverse section. SURGEON: Miguelangel Nunez MD. LANDSCAPE ARCHITECT AND PLANNER: Oliverio Brian MD. TYPE OF ANESTHESIA: Epidural and spinal. ANESTHESIA ADMINISTERED BY: Angel Chery MD. FINDINGS: Term-size uterus, live baby girl, Apgars 9 and 9. Clear fluid, cord with 3 vessels. Placenta anterior. Tubes and ovaries within normal limits. A small amount of adhesions. DESCRIPTION OF PROCEDURE: With the patient in the supine position and under spinal and epidural anesthesia, the patient was prepped and draped in the usual sterile manner. Dr. Brian was present from the beginning of the procedure and helped in the preparation of the procedure. A Pfannenstiel incision was made and taken down to the fascia in layers. Fascia was incised and extended bilaterally, Dr. Brian doing his side and I am doing my half. After this was done, the muscle was from the fascia by sharp dissection, Dr. Brian assisting along the way. After this was done, then the peritoneum was grasped and incised vertically. Upon entering the peritoneum and entering the abdominopelvic cavity, there was a small amount of adhesions, which were lysed sequentially. Following this, the bladder flap was established and low-transverse incision was made in the uterus extending bilaterally curving upwards. Dr. Brian assisting in opening up the uterus. After this was done, the baby was removed without any complication, given to billboard installer who resuscitated. The placenta was then removed intact. The uterus was exteriorized and cleaned. After that, the uterus was closed in 2 layers with 1 Vicryl running interlocking stitch maintaining hemostasis. Following this, the pelvic cavity was irrigated until clean. Wet laps were removed from the paracolic gutters. The uterus was then repositioned. The peritoneum was grasped and closed with 1 Vicryl. Also, the muscles were approximated with 1 Vicryl. After this was done, the fascia was closed with 1 Vicryl running interlocking stitch starting at each end and finishing in the midline, Dr. Brian doing his half and I am doing my half. After this was done, the subcutaneous layer was closed with 2-0 plain and the skin was closed, subcuticular layer, with 3-0 Prolene. The patient tolerated the procedure well and was in satisfactory condition on the way to recovery room. Dr. Brian was present from the beginning of the procedure to the end of the last stitch. Miguelangel Nunez MD
[2017-11-07] MEDS: Oxycodone/Acetaminophen 5/325 mg Tab PO PRN (20:16)
[2017-11-08 06:52] LABS: BASO # 0.2 K/uL (0.0-0.2); BASO % 0.8 % (0.0-2.0); EOS % 0.3 % (0.0-4.0); HEMATOCRIT 32.1 % (34.0-47.0); LYMPH # 2.9 K/uL (1.0-4.3); LYMPH % 15.6 % (20.0-40.0); MEAN CELL VOLUME 75.9 fl (81.0-99.0); MEAN CORPUSCULAR HEMOGLOBIN 24.6 pg (27.0-31.0); MEAN CORPUSCULAR HGB CONC 32.4 g/dL (33.0-37.0); MEAN PLATELET VOLUME 9.2 fl (7.2-11.7); MONO # 1.1 K/uL (0.0-0.8); MONO % 6.2 % (0.0-10.0); NEUT # 14.1 K/uL (1.8-7.0); NEUT % 77.1 % (50.0-75.0); NRBC % 0.1 % (0.0-0.0); RED CELL DISTRIBUTION WIDTH 15.1 % (11.5-14.5); WHITE BLOOD COUNT 18.2 K/uL (4.8-10.8)
--- NOTE | 2017-11-08 12:51 | OBPPN ---
Datetime: 11/08/2017 12:22 PP Pain Prov: Within normal limits PP Nausea Prov: Denies PP Flatus Prov: Yes PP BM Prov: No PP Breasts Prov: Normal PP Heart Prov: Normal PP Lungs Prov: Normal PP Abdomen/Uterus Prov: Normal PP Lochia Prov: Normal PP Vulva/Perineum Prov: Normal PP CVA Tenderness Prov: Normal PP Extremities Prov: Normal PP C/S Incision Prov: Normal PP Progress Prov: Normal PP Impression Prov: Normal progression PP Plan Prov: Continue present management PP Progress Note Prov: stable pod1 no complaints continue present care dc deja vazquez with assistance advance diet as tolerated IP PP Procedures: None
[2017-11-08] MEDS: Oxycodone/Acetaminophen 5/325 mg Tab PO PRN (22:27)
--- NOTE | 2017-11-09 11:21 | OBPPN ---
Datetime: 11/09/2017 11:18 PP Pain Prov: Within normal limits PP Nausea Prov: Denies PP Flatus Prov: Yes PP BM Prov: Yes PP Breasts Prov: Normal PP Heart Prov: Normal PP Lungs Prov: Normal PP Abdomen/Uterus Prov: Normal PP Lochia Prov: Normal PP Vulva/Perineum Prov: Normal PP CVA Tenderness Prov: Normal PP Extremities Prov: Normal PP C/S Incision Prov: Normal PP Progress Prov: Normal PP Impression Prov: Normal progression PP Plan Prov: Continue present management PP Progress Note Prov: stable pod2 continue present care IP PP Procedures: None Vital Signs Provider PP: Reviewed; Within Normal Limits
--- NOTE | 2017-11-09 11:23 | OBDCSUM ---
Datetime: 11/09/2017 11:20 Discharged to, Provider: Home Follow up at, Provider: Disch Instr Activity: Bedrest; May be up to bathroom; May be up for meals; May Shower Disch Instr Diet: Regular Discharge Instructions, Provider: Routine instructions given Discharge Diagnosis, Provider: Term Delivered Discharge Time: 11/09/2017 11:21 Follow up in weeks, Provider: 1week in office Disch Referrals: None Disch Activity Restrictions: No exercising; No lifting; No driving; Minimize walking; Minimize stair -climbing; No sexual activity; Nothing in vagina - Serena, tampons, douche Discharge Comment, Provider: gildardo home today rto 1week call office if any problems Contraception after Delivery: Undecided
[2017-11-09 19:35] VITALS: BP 130/77; PULSE 88; RESP 20; TEMP 98.3
== END 2017-11-09 14:10 | disposition home or self-care (01) | DRG 766 ==
LOC: H.EROB2 00:37 → H.L&D 01:02 → H.OB/GYN 08:02
PROVIDERS: ADMIT Specialist; ATTEND Specialist
PROC: 10D00Z1 Extraction of Products of Conception, Low, Open Approach (ICD-10-PCS; principal; 2017-11-07)
DX: O34.211 Maternal care for low transverse scar from previous cesarean delivery (principal); O69.81X0 Labor and delivery complicated by cord around neck, without compression, not applicable or unspecified; O77.0 Labor and delivery complicated by meconium in amniotic fluid; Z37.0 Single live birth; Z3A.38 38 weeks gestation of pregnancy

== ENCOUNTER 2018-01-04 12:08 | Emergency (ER) | payer SELFPAY ==
[2018-01-04 12:09] VITALS: BMI 43.9
[2018-01-04 12:32] VITALS: BP 105/60; PULSE 65; RESP 16; TEMP 97.6; O2SAT 100
[2018-01-04] MEDS ORDERED: Acetaminophen-Codeine 300/30 mg Tab PO STA (13:05)
--- NOTE | 2018-01-04 13:18 | ED PDOC ---
Lower Extremity Pain/Injury Time Seen by Provider: 01/04/18 13:08 Chief Complaint (Nursing): Lower Extremity Problem/Injury Chief Complaint (Provider): Lower Extremity Injury History Per: Patient History/Exam Limitations: no limitations Onset/Duration Of Symptoms: Hrs (x3) Current Symptoms Are (Timing): Still Present Additional Complaint(s): 27 year old female presents to ED with complaints of left ankle pain x3 hours status post fall and has a past medical history of back problems and cholelithiasis. Patient states that she slipped on a wet surface and fell down 4 -5 stairs, injuring her left ankle. Confirms pain worsens with pressure on the area and movement. Notes taking 800mg Motrin twice today. LMP: 12/22/17 PCP: Dr. Lezama - Ankle/Foot Description Of Injury: Fell Currently Unable To: Bear Weight, Bend Or Move Alleviating Factor(s): OTC Pain Medication (Motrin) Past Medical History Reviewed: Historical Data, Nursing Documentation, Vital Signs Vital Signs: Last Vital Signs Temp 97.6 F 01/04/18 12:30 Pulse 65 01/04/18 12:30 Resp 16 01/04/18 12:30 BP 105/60 01/04/18 12:30 Pulse Ox 100 01/04/18 12:30 - Medical History PMH: Gastritis, GERD, Chronic Pain (back) Denies: Depression, Diabetes, HTN - Surgical History Surgical History: - Family History Family History: States: Unknown Family Hx - Living Arrangements Living Arrangements: With Family - Social History Drugs: Denies - Home Medications Home Medications: Ambulatory Orders Medication Instructions Recorded Vit Calc,Iron,Folic 1 tab PO DAILY 10/06/17 [ Vitamins] Naproxen 500 mg PO BID PRN #20 tab 01/04/18 - Allergies Allergies/Adverse Reactions: Allergies Allergy/AdvReac Type Severity Reaction Status Date / Time No Known Allergies Allergy Verified 01/04/18 12:30 Review of Systems ROS Statement: Except As Marked, All Systems Reviewed And Found Negative Musculoskeletal: Positive for: Other ((+) left ankle pain) Physical Exam - Reviewed Nursing Documentation Reviewed: Yes Vital Signs Reviewed: Yes - Physical Exam Appears: Positive for: Well, Non-toxic, No Acute Distress Skin: Positive for: Normal Color, Warm, Dry Neck: Positive for: Supple Cardiovascular/Chest: Positive for: Regular Rate, Rhythm Respiratory: Positive for: Normal Breath Sounds. Negative for: Decreased Breath Sounds, Accessory Muscle Use, Respiratory Distress Back: Positive for: Normal Inspection. Negative for: Vertebral Tenderness Extremity: Positive for: Tenderness (tenderness to the distal fibula and lateral malleolus of the left ankle), Other ((+) mild effusion to the area (-) ecchymosis. NV intact.). Negative for: Normal ROM (decreased ROM in all directions secondary to pain) Neurologic/Psych: Positive for: Alert, Oriented. Negative for: Motor/Sensory Deficits - ECG O2 Sat by Pulse Oximetry: 100 (RA) Pulse Ox Interpretation: Normal Medical Decision Making Medical Decision Makin Initial impression: acute ankle pain/sprain Initial plan: * Acetaminophen/Codeine 1 tab PO. (Patient states she will not be driving home) * XR ANKLE LEFT * MARILU wrap applied to left ankle by Melina RICO. NV intact after placement. 1403 XR: no fracture, no dislocation Upon re-evaluation patient is feeling better. Diagnostics discussed with demonstrated understanding. Patient is stable for discharge home with crutches and instructed to rest and elevate leg as much as possible. Condition: improved Scribe Attestation: Documented by Estela Abad, acting as a scribe for Verna Summers PA-C. Provider Scribe Attestation: All medical record entries made by the Scribe were at my direction and personally dictated by me. I have reviewed the chart and agree that the record accurately reflects my personal performance of the history, physical exam, medical decision making, and the department course for this patient. I have also personally directed, reviewed, and agree with the discharge instructions and disposition. Disposition - Clinical Impression Clinical Impression: Acute ankle pain, Ankle sprain, Fall (on) (from) other stairs and steps, initial encounter - Patient ED Disposition Is Patient to be Admitted: No Counseled Patient/Family Regarding: Studies Performed, Diagnosis - Disposition Disposition: Routine/Home Disposition Time: 14:04 Condition: STABLE Prescriptions: Naproxen 500 mg PO BID PRN #20 tab PRN Reason: Pain, Moderate (4-7) Instructions: Ankle Sprain (ED), RICE Therapy (ED) Forms: [employer] (Korean) Print Language: COMORAN
[2018-01-04] MEDS ORDERED: Acetaminophen-Codeine 300/30 mg Tab ONE (13:20)
--- NOTE | 2018-01-04 15:03 | RAD ---
PROCEDURE: Left Ankle Radiographs. HISTORY: ankle pain s/p fall COMPARISON: 09/30/2018 images available report not available to me at this time FINDINGS: BONES: No fracture. Plantar and Achilles Tendon insertion calcaneal spurs JOINTS: Normal. No osteoarthritis. Ankle mortise maintained. Talar dome intact SOFT TISSUES: Tibiotalar anterior posterior soft tissue swelling. Effusion here likely OTHER FINDINGS: None. IMPRESSION: No fracture or dislocation. The talar level soft tissue swelling/effusion Plantar and Achilles Tendon insertion calcaneal spurs
== END 2018-01-04 15:00 | disposition home or self-care (01) ==
LOC: H.ER 12:08
DX: S93.402A Sprain of unspecified ligament of left ankle, initial encounter (principal); W10.8XXA Fall (on) (from) other stairs and steps, initial encounter; Y92.89 Other specified places as the place of occurrence of the external cause; G89.29 Other chronic pain; K21.9 Gastro-esophageal reflux disease without esophagitis